=== PATIENT | male | born 1935 | race Caucasian/White ===

== ENCOUNTER → 2016-08-20 | Outpatient (CLI) | payer OTHER, BC | END | disposition home or self-care (01) | LOC: C.LABSPEC 15:43 | PROVIDERS: ATTEND Internal Medicine | DX: R31.29 Other microscopic hematuria (principal) ==

== ENCOUNTER 2021-10-14 10:22 | Observation (INO) ==
--- NOTE | 2021-10-13 11:00 | Anesthesiology Consultation ---
Date of Service October 13, 2021 Assessment & Plan (1) Encounter for pre-operative examination: Chart Review Chart Review: Acceptable Risk for Surgery and Patient NOT seen in Pre Admission Testing Per urology note 10/13/21= "Unfortunately, he also remains on aspirin and Plavix and I think at this stage is not necessary to stop those this his bleeding is not life-threatening and I do not not want to risk a CVA or other complication" (Confirmed with surgeon's office that Dr. Okeefe is okay with patient continuing Plavix and ASA perioperatively) Per nursing assessment 10/13/21, patient denies any recent travel. No known recent Covid positive exposures. Pt did test Covid positive 09/26/21 at [facility] in [place] (had coughing and fatigue at time of Covid positive test- symptoms have since resolved). Family members tested Covid negative. Pt fully vaccinated for Covid. PCR Covid positive 10/07/21 at [facility]- per 90 day policy- pt can proceed as scheduled (will be 18 days out from initial Covid positive test- symptoms resolved). Pt will be 23 observation- [place]rade test DOS not needed due to Covid positive in the past 90 days History Surgery Operation Date: 10/14/21 12:05 Proposed Procedures p Transurethral Resection Prostate and Clot Evacuation - Jayesh Okeefe MD Allergies Allergy/AdvReac Type Severity Reaction Status Date / Time iodine Allergy Severe Anaphylaxis Verified 10/13/21 14:06 shellfish derived Allergy Severe Anaphylaxis Verified 10/13/21 14:06 Medications Home Medications Medication Instructions Recorded Confirmed Last Taken alprazolam 0.5 mg tablet 0.25 mg PO HS 11/22/18 10/13/21 Unknown amlodipine 5 mg tablet 5 mg PO QPM 11/22/18 10/13/21 Unknown aspirin 81 mg tablet,delayed 81 mg PO 11/22/18 10/13/21 Unknown release (Adult Low Dose Aspirin) atorvastatin 20 mg tablet 20 mg PO QPM 11/22/18 10/13/21 Unknown clopidogrel 75 mg tablet 75 mg PO HS 11/22/18 10/13/21 Unknown coenzyme Q10 10 mg capsule 10 mg PO QA 11/22/18 10/13/21 Unknown escitalopram oxalate 20 mg tablet 20 mg PO QAM 11/22/18 10/13/21 Unknown losartan 50 mg tablet 50 mg PO HS 11/22/18 10/13/21 Unknown bicalutamide 50 mg tablet 50 mg PO DAILY #7 tabs 02/27/20 08/06/21 Unknown cephalexin 500 mg capsule 500 mg PO QID 10/13/21 10/13/21 Unknown hydrochlorothiazide 25 mg tablet 25 mg PO BID 10/13/21 10/13/21 Unknown magnesium 250 mg tablet 250 mg PO BID 10/13/21 10/13/21 Unknown Past Medical History Medical History Anxiety BPH loc w urin obs/LUTS CVA (cerebral vascular accident) On Plavix and ASA>4 YEARS AGO *[facility] PROBLEMS Dumont catheter in place History of COVID-19 09/26/21T Q[place]CARE [place] TESTED>COUGHING AND FATIGUE *FEELS BETTER History of kidney stones HTN (hypertension) Hyperlipidemia Prostate cancer RADIATION TREATMENT Stopped Lupron injections August 2021 Past Family History Family History Mother Pancreatic cancer Kidney stone Sister Pancreatic cancer Kidney stone Other No family history of adverse response to anesthesia Past Surgical History Surgical History H/O prostate biopsy History of colonoscopy History of hip surgery RESURFACING OF RT HIP History of kidney surgery REMOVAL "KIDNEY STONE THROUGH MY SIDE" History of tonsillectomy and adenoidectomy [place] teeth extracted Social History Smoking Status: Former smoker Lab Results Anesthesia Preop Results Results Anesthesia Widget: WBC 9.64 K/ul (4.8-10.8) 10/07/21 Hgb 12.6 g/dl (14.0-18.0) L 10/07/21 Hct 36.9 % (40.1-51.0) L 10/07/21 Plt 449 K/uL (130-400) H 10/07/21 Na 132 mmol/L (136-145) L 10/07/21 K 3.4 mmol/L (3.5-5.1) L 10/07/21 Cl 98 mmol/L (98-107) 10/07/21 CO2 23 mmol/L (21-32) 10/07/21 BUN 31 mg/dl (6-23) H 10/07/21 Creat 1.22 mg/dl (0.6-1.4) 10/07/21 Glucose Level 159 mg/dl (70-99(Fasting)) H 10/07/21 PT 10.5 Seconds (9.0-12.0) 10/07/21 PTT 23.9 Seconds (21.0-31.0) 10/07/21 INR 1.0 (0.9-1.1) 10/07/21 SARS-CoV-2, RNA, NAAT POSITIVE (NEGATIVE) A* 10/07/21 Testing Electrocardiogram Date: 10/13/21 Findings: + ST @ (101 bpm ) Otherwise normal EKG per cardio Chest X-Ray Date: 10/13/21 Findings: + NAD
[~2021-10-14 10:22] MED LIST: CIPROFLOXACIN / D5W 400 MG/200 ML BAG IV SCH; LR 15ML/HR IV SCH
[2021-10-14] MEDS ORDERED: PROPOFOL IV EMULSION 10 MG/ML 20 ML VIAL IV ONE (11:38)
[2021-10-14] MEDS ORDERED: PHENYLEPHRINE 100MCG/ML 5ML SYR ONE (11:38)
[2021-10-14] MEDS ORDERED: fentaNYL citrate 100 MCG/2 ML VIAL ONE (11:38)
[2021-10-14] MEDS ORDERED: LIDOCAINE 2% MPF LOCAL 5 ML VIAL INFIL ONE (11:38)
[2021-10-14] MEDS ORDERED: ePHEDrine sulfate 50 MG/ML SYR ONE (11:38)
--- NOTE | 2021-10-14 12:29 | History & Physical Bridge Note ---
Date of Service October 14, 2021 History & Physical Bridge Note I have examined the patient, reviewed the History & Physical and in the interval since the performance of the History & Physical I have noted the following changes of clinical significance: no changes noted
[2021-10-14] MEDS ORDERED: ePHEDrine sulfate 50 MG/ML AMP IV PRN (13:35)
[2021-10-14] MEDS ORDERED: ONDANSETRON INJ 2 MG/ML 2 ML VIAL IV PRN (13:35)
[2021-10-14] MEDS ORDERED: ATROPINE SULFATE 0.1 MG/ML 10ML SYR IV PRN (13:35)
[2021-10-14] MEDS ORDERED: PHENYLEPHRINE HCL 10 MG/ML VIAL ONE (13:38)
--- NOTE | 2021-10-14 14:11 | Operative Report ---
PG Post Operative Report Pre & Post Diagnosis Operation Date: 10/14/21 12:05 Pre-Op Diagnosis: Prostate Cancer, Gross Hematuria Post-Op Diagnosis: Prostate Cancer, Gross Hematuria I identified the patient and participated in the time-out.: Yes Procedure Operation Date: 10/14/21 12:05 Actual Procedures p Transurethral Resection of Prostate(Not Applicable) - Jayesh Okeefe MD Surgeon Jayesh Okeefe MD Stripper Color none Estimated Blood Loss 0 Findings Consistent with Post-Op Diagnosis Specimens none Description of Procedure Of note this is an 86-year-old gentleman who has had radiation for prostate cancer and is recently started to experience gross hematuria and clot retention. He had a difficult catheterization while traveling to [place] earlier this summer, he has not been able to remove the catheter since that time and he has had persistent bleeding since that time. To begin the case I passed a 26 Urdu resectoscope with 30 degree lens and visual obturator. Inspection revealed a healthy-appearing urethra without evidence of false passage. Inspection of his prostate reveals a blanched appea ring prostate consistent with prior radiation. There are numerous prominent vessels and some mild active bleeding at the bladder neck. Inspection of the bladder was relatively unremarkable. He has trabeculation as well as some areas of edema and a small amount of bleeding from the right lateral wall. Ureteral orifices were in orthotopic position. Following my inspection I utilized a button electrode. I first cauterized areas that were bleeding in the bladder, there was one area on the right lateral wall that was mentioned previously, also 1 other small area with numerous prominent/superficial vessels on the left lateral wall. After cauterizing these areas I turned my attention to the bladder neck. I cauterized all with prominent vessels active bleeders at the bladder neck. There was some irregularity to the prostate wall from the left lateral lobe and I used the cut feature to vaporize and resect this tissue smoothing the prostate. I cauterized and controlled all small vessels around the area of resection. I then performed the same procedure on the right side. Ultimately I cauterized several vessels near the apex of the prostate and felt that all sites of active bleeding have now been treated. I reinspected and had no bleeding. I left the bladder full and withdrew the scope. He generated a strong stream. He was reversed of anesthesia and taken to the recovery room in stable condition. There were no complications. I attest to the content of the Intraoperative Record and any orders documented therein. Any exceptions are noted below.
[2021-10-14] MEDS: fentaNYL citrate 100 MCG/2 ML VIAL IV PRN ×2 (14:12→14:17)
--- NOTE | 2021-10-14 15:31 | Anesthesiology Progress Note ---
Date of Service October 14, 2021 Anesthesia Post Procedure Vital Signs Vital Signs: Temp Pulse Resp BP Pulse Ox O2 Del Method O2 Flow Rate 10/14/21 15:00 83 17 120/58 L 98 Nasal Cannula 4 10/14/21 14:45 36.4 C L 79 17 121/58 L 98 Nasal Cannula 4 10/14/21 14:35 80 16 121/60 98 Nasal Cannula 4 10/14/21 14:25 80 16 119/53 L 98 Nasal Cannula 4 10/14/21 14:15 83 17 122/55 L 95 Nasal Cannula 4 10/14/21 14:05 84 17 122/54 L 100 Oxymask 5 10/14/21 13:56 37.1 C 84 18 135/63 100 Oxymask 5 10/14/21 10:49 37 C 94 H 18 146/67 H 98 Room Air Transfer of Care Handoff Completed per policy Notes Mental Status: alert / awake / arousable Patient Amnestic to Procedure: Yes Nausea / Vomiting: adequately controlled Pain: adequately controlled Airway Patency, RR, SpO2: stable & adequate BP & HR: stable & adequate Hydration State: stable & adequate Anesthetic Complications: no major complications apparent
[2021-10-14] MEDS ORDERED: ACETAMINOPHEN 325 MG TAB PO PRN (15:41)
[2021-10-14] MEDS ORDERED: HYDROCODONE/ACETAMOPHEN 5/325MG TAB PO PRN (15:41)
[2021-10-14] MEDS: D5W AND NSS 1,000 ML IV SCH (15:44)
[2021-10-14] MEDS: MAGNESIUM OXIDE 400 MG TAB PO SCH (20:09)
[2021-10-14] MEDS ORDERED: ASPIRIN 81 MG ECTAB PO SCH (21:00)
[2021-10-14] MEDS ORDERED: amLODIPine BESYLATE 5 MG TAB PO SCH (21:00)
[2021-10-14] MEDS ORDERED: ALPRAZolam 0.25 MG TABLET PO SCH (21:00)
[2021-10-14] MEDS ORDERED: ATORVASTATIN 20 MG TAB PO SCH (21:00)
[2021-10-14] MEDS ORDERED: LOSARTAN POTASSIUM 50 MG TAB PO SCH (21:00)
[2021-10-15] MEDS ORDERED: CIPROFLOXACIN / D5W 400 MG/200 ML BAG IV SCH
[2021-10-15] MEDS: D5W AND NSS 1,000 ML IV SCH (05:13)
[2021-10-15] MEDS: MAGNESIUM OXIDE 400 MG TAB PO SCH (07:45)
--- NOTE | 2021-10-15 07:57 | Urology Progress Note ---
Date of Service October 15, 2021 Assessment & Plan (1) Gross hematuria: (2) Prostate cancer: Plan Status post clot evacuation, fulguration and mild TURP to address bleeding vessels secondary to prior prostate cancer radiation therapy Doing well this morning Hold Plavix until Wednesday Plan for discharge home later this morning Admission and Anticipated Discharge Date Admission Date: October 14, 2021 Subjective No major issues overnight Was voiding adequately Urine has been clear for throughout most of the night although he did have a small amount of blood this morning Overall feels well and is anxious to go home Physical Exam Constitutional: well developed and well nourished Respiratory: no respiratory distress Cardiovascular: Extremities: no pedal edema Gastrointestinal (Abdomen): Inspection/Auscultation: abdomen normal to inspection Results & Data ([facility]) Vital Signs (Past 12 Hours) Vital Signs Temp Pulse Resp BP BP Pulse Ox O2 Del Method 10/15/21 07:41 36.8 C 81 16 119/70 96 Room Air 10/15/21 02:58 36.7 C 76 18 122/71 92 Room Air 10/14/21 23:28 36.6 C 18 117/71 95 Room Air PG Care Time/CCT Total # of Minutes Spent Total Time Spent with Patient: Total time spent is greater than 50% in coordination of care (as documented) at patient's floor/unit and/or counseling patient: Coding Level of Care Code None Diagnoses Gross hematuria R31.0 Prostate cancer C61
[2021-10-15 08:33] LABS: Basophils # (auto) 0.03 K/uL (0-0.2); Basophils % (auto) 0.3 %; Eosinophils # (auto) 0.01 K/uL (0-0.50); Eosinophils % (auto) 0.1 %; Hematocrit (blood only) 27.3 % (40.1-51.0); Hemoglobin 9.2 g/dl (14.0-18.0); Immature Granulocytes # (auto) 0.21 K/uL (0.00-0.02); Immature Granulocytes % (auto) 1.8 %; Lymphocytes # (auto) 0.86 K/uL (1.2-3.4); Lymphocytes % (auto) 7.4 %; Mean Corpuscular Hemoglobin 31.3 pg (25.0-34.0); Mean Corpuscular Hgb Conc 33.7 g/dL (32.0-36.0); Mean Corpuscular Volume 92.9 fL (80.0-100.0); Mean Platelet Volume 9.2 fL (9.4-12.4); Monocytes # (auto) 0.42 K/uL (0.24-0.82); Monocytes % (auto) 3.6 %; Neutrophils # (auto) 10.14 K/uL (1.4-6.5); Neutrophils % (auto) 86.8 %; Platelet Count 405 K/uL (130-400); RDW Coefficient of Variation 12.8 % (11.5-14.5); RDW Standard Deviation 43.1 fL (36.4-46.3); Red Blood Count 2.94 M/uL (4.63-6.08); White Blood Count 11.67 K/ul (4.8-10.8)
[2021-10-15] MEDS ORDERED: ESCITALOPRAM OXALATE 20 MG TAB PO SCH (09:00)
[2021-10-15] MEDS ORDERED: hydroCHLOROthiazide 25 MG TAB PO SCH (09:00)
[2021-10-15 09:07] LABS: BUN Creatinine Ratio 22.3 (10-20); Creatinine Clr Calc Pharmacy 57.8 ml/min; Est GFR (African American) 68.1 ml/min; Est GFR (Non-African American) 58.7 ml/min
--- NOTE | 2021-10-15 11:37 | Discharge Summary ---
Date of Service October 15, 2021 Admission HPI Per Admitting Provider 86yo M with a hx of radiation for prostate cancer who recently started to experience gross hematuria and clot retention and presents for TURP and clot evacuation. Admission Exam Per Admitting Provider Constitutional well developed and well nourished Neck neck nontender Respiratory normal respiratory effort; no respiratory distress and does not use accessory muscles Cardiovascular Rate/Rhythm: regular rate Vessels: radial pulses present Extremities: no edema Gastrointestinal (Abdomen) Inspection/Auscultation: abdomen normal to inspection Percussion/Palpation: abdomen soft; abdomen nontender and no guarding Musculoskeletal Head/Neck/Chest: normocephalic and head atraumatic Extremities: extremities normal to inspection Skin no rashes and no lesions Trauma: no evidence of skin trauma Neurologic awake; not obtunded Speech / Cognition: normal speech Motor/Sensory: no tremor Psychiatric Orientation: alert and oriented x 3 Genitourinary no CVA tenderness Lymphatic no lymphadenopathy Principal Diagnosis Prostate cancer, Gross hematuria Discharge Exam Constitutional:well developed and well nourished Respiratory:no respiratory distress Cardiovascular:Extremities: no pedal edema Gastrointestinal (Abdomen):Inspection/Auscultation: abdomen normal to inspection Discharge Data Allergies Allergy/AdvReac Type Severity Reaction Status Date / Time iodine Allergy Severe Anaphylaxis Verified 10/14/21 10:42 shellfish derived Allergy Severe Anaphylaxis Verified 10/14/21 10:42 Procedures Performed Operation Date: 10/14/21 12:05 Actual Procedures p Transurethral Resection of Prostate(Not Applicable) - Jayesh Okeefe MD Hospital Course (1) Gross hematuria: (2) Prostate cancer: Plan 86-year-old male admitted status post clot evacuation, fulguration and mild TURP to address bleeding vessels secondary to prior prostate cancer and radiation therapy. Patient tolerated procedure well. No acute issues postoperatively. Stable labs. Voiding adequately. No reported pain. Patient discharged home postop day #1 in stable condition. Total Time Total Time Spent Total Time Spent (In Minutes): 15 Discharge Plan Discharge Items Patient Disposition: Home - Self-Care Reason For Visit: Prostate Cancer, Gross Hematuria Discharge Diagnosis: Prostate Cancer, Gross Hematuria Activity: Per Instructions section Lifting: Gradually increase as tolerated Exercise/Sports: Gradually increase as tolerated Non-emergency contact: Surgeon and Urologist Call non-emergency contact if: you have any medication questions, your pain is not controlled and you have a fever Follow-up/Referrals: Jayesh Okeefe MD [Physician] - (Office will call you with an appointment date and time) Fercho Napoles MD [Primary Care Provider] - Diet: Regular Addtl Attending Provider Instructions: Please take all medications as prescribed and keep all follow-ups as scheduled. Please call our office at [phone] with any questions, concerns or need to reschedule appointments for any reason. We are happy to assist you. You may resume your Plavix on WednesdayOctober 18. Please call the urology office with any questions or concerns. Tips for your recovery at home: Dont be alarmed by brownish or reddish blood or clots in your urine. This is a result of the procedure. This may occur off and on for weeks to months after the procedure but should continue to improve. Drink plenty of fluids during the day (enough to keep your urine very light colored). This will help keep a healthy flow of urine. Avoid constipation. Please use a stool softener (Colace) as needed for the first two weeks after your procedure. When to call [facility] at [phone]: Your urine contains heavy blood clots or you are unable to urinate. You are constantly leaking urine. Fever of 101F or higher, chills, nausea, or vomiting. Your pain is not relieved with medication. Pending Studies at Discharge: No Stand-Alone Forms: [facility], Sm[facility] Cessation Medications and DC Order Prescriptions: Continued alprazolam 0.5 mg tablet 0.25 mg PO HS amlodipine 5 mg tablet 5 mg PO QPM aspirin [Adult Low Dose Aspirin] 81 mg tablet,delayed release (DR/EC) 81 mg PO HS clopidogrel 75 mg tablet 75 mg PO HS coenzyme Q10 10 mg capsule 10 mg PO QAM escitalopram oxalate 20 mg tablet 20 mg PO QAM atorvastatin 20 mg tablet 20 mg PO QPM losartan 50 mg tablet 50 mg PO HS bicalutamide 50 mg tablet 50 mg PO DAILY Qty: 7 0RF Label Comments: PT'S UNFAMILAR WITH THIS MEDICAITONS Rx Instructions: Please start 3 days prior to your injection at Dr. Okeefe's office. cephalexin 500 mg Capsule 500 mg PO QID magnesium 250 mg Tablet 250 mg PO BID hydrochlorothiazide 25 mg Tablet 25 mg PO BID Discharge Orders: Discharge Order (Routine); Ordered 10/15/21 Ordered By: Tiffanie Hernandez/Other Patient Handouts: Hematuria: Possible Causes Admission Data Admit Date/Time: 10/14/21 14:55 Attending Provider: Jayesh Okeefe Admit Provider: Jayesh Okeefe Primary Care Provider: Fercho Napoles Other Interventions: Discharge Summary Assessment (RN) Last Done: 10/15/21 10:06 Coding Level of Care Code D/C DAY MANAGEMENT <30 MINS Diagnoses Gross hematuria R31.0 Prostate cancer C61
[2021-10-16] MEDS ORDERED: ALPRAZolam 0.25 MG TABLET PO SCH (21:00)
== END 2021-10-15 10:36 | disposition home or self-care (01) ==
LOC: ASU 10:22 → 3N 10:22